=== PATIENT | female | born 1985 | race Two or more races ===

== ENCOUNTER 2018-07-16 17:42 | Observation (INO) | payer MEDICAID ==
[~2018-07-16] VITALS: Ht 160 cm; Wt 79.8 kg
== END 2018-07-16 19:15 | disposition home or self-care (01) ==
LOC: 8 EST LDRP 17:42
PROVIDERS: ADMIT Obstetrics & Gynecology; ATTEND Obstetrics & Gynecology
DX: O36.5930 Maternal care for other known or suspected poor fetal growth, third trimester, not applicable or unspecified (principal); Z3A.38 38 weeks gestation of pregnancy
CPT/HCPCS: 76805; 76818; 99281; G0378

== ENCOUNTER 2018-07-28 11:05 | Observation (INO) | payer MEDICAID ==
[~2018-07-28] VITALS: Ht 157.5 cm; Wt 79.8 kg
[2018-07-28] MEDS ORDERED: FERR-71 PO (12:02)
[2018-07-28] MEDS ORDERED: PREN-142 PO (12:02)
== END 2018-07-28 15:00 | disposition home or self-care (01) ==
LOC: 8 EST LDRP 11:05
PROVIDERS: ADMIT Obstetrics & Gynecology; ATTEND Obstetrics & Gynecology
DX: O99.89 Other specified diseases and conditions complicating pregnancy, childbirth and the puerperium (principal); M54.9 Dorsalgia, unspecified; O48.0 Post-term pregnancy; Z3A.40 40 weeks gestation of pregnancy
CPT/HCPCS: 59025; 76805; 76818; 99281; G0378

== ENCOUNTER 2018-07-29 06:24 | Inpatient (IN) | payer MEDICAID ==
[~2018-07-29] VITALS: Ht 157.5 cm; Wt 79.8 kg
[~2018-07-29 06:24] MED LIST: FERR-71 PO; PRENATAL ONE T1 EACH PO
[2018-07-29] MEDS ORDERED: DEXT 5%/LR + PITOCIN 20UNITS/L 1,000 ML IV ONE (07:37)
[2018-07-29] MEDS ORDERED: DEXT 5%/LR + PITOCIN 20UNITS/L 1,000 ML IV SCH ×2 (08:39→18:10)
[2018-07-29] MEDS ORDERED: LIDOCAINE HCL 1% 20ML VIAL (Pyxis) INJ INFIL PRN (08:45)
[2018-07-29] MEDS ORDERED: NALOXONE HCL 0.4 MG/ML 1ML VIAL IM PRN (08:45)
[2018-07-29] MEDS ORDERED: BUTORPHANOL TARTRATE 2 MG/ML VIAL IV PRN (08:45)
[2018-07-29] MEDS ORDERED: METHYLERGONOVINE MALEATE 0.2 MG/ML IM PRN (08:45)
[2018-07-29] MEDS ORDERED: MISOPROSTOL 100MCG TABLET VG PRN ×2 (08:45)
[2018-07-29] MEDS: LACTATED RINGERS 1,000 ML IV SCH ×2 (08:56→11:23)
[2018-07-29 09:00] LABS: BASOPHILS % 0.4 % (0.0-2.0); HEMOGLOBIN. 10.5 g/dL (12.0-16.0); LYMPHOCYTES % 19.2 % (20.0-50.0); MEAN CORPUSCULAR HEMOGLOBIN 30.4 pg (28.0-32.0); MEAN CORPUSCULAR VOLUME 89.8 fL (81.0-99.0); MONOCYTES % 8.8 % (2.0-8.0); NEUTROPHILS % 70.6 % (40.0-76.0); PLATELET 255 x1000/uL (130-400); RED BLOOD CELL COUNT 3.45 mill/uL (4.2-5.4); RED CELL DISTRIBUTION WIDTH 14.9 % (11.6-14.6)
[2018-07-29] MEDS ORDERED: AMPICILLIN 2,000 MG in SODIUM CHLORIDE 0.9% 100 ML IV ONE (09:00)
[2018-07-29 09:07] LABS: CLARITY URINE CLOUDY (CLEAR); COLOR URINE YELLOW (YELLOW); KETONES URINE NEGATIVE (NEGATIVE); LEUKOCYTE ESTERASE URINE 3+ (NEGATIVE); NITRITE URINE NEGATIVE (NEGATIVE); OCCULT BLOOD URINE NEGATIVE (NEGATIVE); PROTEIN URINE TRACE (NEGATIVE); SPECIFIC GRAVITY URINE 1.021 (1.005-1.030)
[2018-07-29 09:08] LABS: INR 0.9; PARTIAL THROMBOPLASTIN TIME 23.1 sec (23.4-31.0); PROTHROMBIN TIME 9.4 sec (9.6-11.0)
[2018-07-29 09:47] LABS: *AMPHETAMINES SCREEN URINE NEGATIVE (NEGATIVE); *BARBITURATES SCREEN URINE NEGATIVE (NEGATIVE); *BENZODIAZEPINES SCREEN URINE NEGATIVE (NEGATIVE); *COCAINE SCREEN URINE NEGATIVE (NEGATIVE); METHADONE URINE SCREEN NEGATIVE (NEGATIVE)
[2018-07-29 09:48] LABS: CANNABINOID URINE SCREEN NEGATIVE (NEGATIVE); OPIATES URINE SCREEN NEGATIVE (NEGATIVE); PHENCYCLIDINE URINE SCREEN NEGATIVE (NEGATIVE)
[2018-07-29 11:18] LABS: HEPATITIS B SURFACE ANTIGEN NEGATIVE
[2018-07-29] MEDS ORDERED: EPHEDRINE SULFATE 50MG/ML VIAL ONE (14:20)
[2018-07-29] MEDS ORDERED: AMPICILLIN 1,000 MG in SODIUM CHLORIDE 0.9% 50 ML IV SCH (15:00)
[2018-07-29] MEDS ORDERED: ROPIVACAINE HCL/PF EPIDURAL 200 ML EP SCH (15:30)
[2018-07-29] MEDS ORDERED: FENTANYL CITRATE/PF 50MCG/ML 2ML VIAL ONE (15:38)
[2018-07-29] MEDS ORDERED: IBUPROFEN 400MG TABLET PO PRN (18:15)
[2018-07-29] MEDS ORDERED: RHO(D) IMMUNE GLOBULIN 300 MCG/SYR IM PRN (18:26)
[2018-07-29 21:00] VITALS: BP 106/50
[2018-07-29] MEDS: IBUPROFEN 800MG TABLET PO PRN (22:42)
[2018-07-30] VITALS: BP 105/50
[2018-07-30 06:00] VITALS: BP 102/53
[2018-07-30 06:30] LABS: BASOPHILS % 0.2 % (0.0-2.0); EOSINOPHILS % 0.3 % (0.0-5.0); HEMATOCRIT. 26.2 % (36.0-48.0); HEMOGLOBIN. 9.2 g/dL (12.0-16.0); LYMPHOCYTES % 17.8 % (20.0-50.0); MEAN CORPUSCULAR HEMOGLOBIN 31.3 pg (28.0-32.0); MEAN CORPUSCULAR VOLUME 89.4 fL (81.0-99.0); MONOCYTES % 6.3 % (2.0-8.0); NEUTROPHILS % 75.4 % (40.0-76.0); PLATELET 219 x1000/uL (130-400); RED BLOOD CELL COUNT 2.93 mill/uL (4.2-5.4)
[2018-07-30 08:00] VITALS: BP 103/54
[2018-07-30] MEDS: IBUPROFEN 800MG TABLET PO PRN ×2 (08:50→15:08)
[2018-07-30 16:00] VITALS: BP 113/62
[2018-07-30 22:00] VITALS: BP 99/74
[2018-07-31] MEDS: IBUPROFEN 800MG TABLET PO PRN (05:44)
[2018-07-31 06:00] VITALS: BP 105/68
[2018-07-31 07:48] VITALS: BP 111/64
== END 2018-07-31 12:51 | disposition home or self-care (01) | DRG 560 ==
LOC: INTOOBSV 06:24 → OBSVTOIN 06:24 → 8 EST LDRP 06:24 → 8EST 20:49
PROVIDERS: ADMIT Obstetrics & Gynecology; ATTEND Obstetrics & Gynecology
PROC: 10E0XZZ Delivery of Products of Conception, External Approach (ICD-10-PCS; principal; 2018-07-29)
PROC: 3E0P7VZ Introduction of Hormone into Female Reproductive, Via Natural or Artificial Opening (ICD-10-PCS; 2018-07-29)
DX: O48.0 Post-term pregnancy (principal); D62 Acute posthemorrhagic anemia; O99.03 Anemia complicating the puerperium; Z37.0 Single live birth; Z3A.40 40 weeks gestation of pregnancy
CPT/HCPCS: 36415; 80305; 86592; 86703; 86762; 86850; 86900; 87340; 99281; J0290; J2590; J2795; J3010; J3490; J7050; A4315